=== PATIENT | male | born 1995 | race Caucasian/White ===

== ENCOUNTER 2016-04-21 12:51 | Emergency (ER) | payer OTHER, BC | END 2016-04-21 14:08 | disposition home or self-care (01) | LOC: FASTR 12:51 | DX: S39.012A Strain of muscle, fascia and tendon of lower back, initial encounter (principal); S16.1XXA Strain of muscle, fascia and tendon at neck level, initial encounter; V49.49XA Driver injured in collision with other motor vehicles in traffic accident, initial encounter; Y92.410 Unspecified street and highway as the place of occurrence of the external cause | CPT/HCPCS: 72100 ==